=== PATIENT | female | born 1975 | race Caucasian/White ===

== ENCOUNTER 2023-07-11 16:34 | Emergency (ER) | payer OTHER ==
[2023-07-11 16:47] VITALS: BP 122/63; PULSE 66; RESP 18; TEMP 97.7; BMI 29.0
[2023-07-11 17:33] LABS: HCG,QUALITATIVE URINE Negative
[2023-07-11 18:07] LABS: EPI CELLS >36 /uL (0-25.1); HYALINE CASTS 1 /uL (0-3.1); PH,URINE 5.5 (5.0-8.0); URINE APPEARANCE CLEAR; URINE BACTERIA 626 /uL (0-1359); URINE BILIRUBIN NEGATIVE (NEGATIVE); URINE COLOR YELLOW; URINE GLUCOSE (UA) NEGATIVE (NEGATIVE); URINE KETONE 1+ (NEGATIVE); URINE LEUK ESTERASE NEGATIVE (NEGATIVE); URINE NITRITE NEGATIVE (NEGATIVE); URINE PROTEIN NEGATIVE (NEGATIVE); URINE RBC 8 /uL (0-23.9); URINE UROBILINOGEN 0.2 mg/dL (0.2-1.0); URINE WBC 33 /uL (0-25.8)
[2023-07-11] MEDS ORDERED: IBUPROFEN 600 MG TABLET (FP) PO ONE (18:41)
[2023-07-11] MEDS ORDERED: ACETAMINOPHEN 500 MG TABLET (FP) ONE (18:41)
[2023-07-11] MEDS ORDERED: PHENAZOPYRIDINE HCL 100 MG TABLET (FP) ONE (18:41)
[2023-07-11] MEDS: PHENAZOPYRIDINE HCL 100 MG TABLET (FP) PO ONE (18:45)
[2023-07-11] MEDS: IBUPROFEN 600 MG TABLET (FP) PO ONE (18:45)
[2023-07-11] MEDS: ACETAMINOPHEN 500 MG TABLET (FP) PO ONE (18:45)
[2023-07-11 19:03] LABS: BASO % 0.5 % (0-2.0); EOS % 2.5 % (0-4.5); HEMATOCRIT 35.3 % (32.4-45.2); HEMOGLOBIN 11.9 GM/dL (10.7-15.3); LYMPH % 36.5 % (8-40); MCH 29.3 pg (25.7-33.7); MCHC 33.6 g/dl (32.0-36.0); MEAN CELL VOLUME 87.2 fl (80-96); MEAN PLT VOLUME 7.7 fl (7.5-11.1); MONO % 4.9 % (3.8-10.2); NEUT % 55.6 % (42.8-82.8); PLATELET COUNT 378 10^3/uL (134-434); RBC 4.05 M/mm3 (3.60-5.2); RDW 14.3 % (11.6-15.6); WHITE BLOOD COUNT 9.1 K/mm3 (4.0-10.0)
[2023-07-11 19:14] LABS: YEAST NONE SEEN (NEGATIVE)
[2023-07-11 19:19] LABS: POTASSIUM 4.2 mmol/L (3.5-5.1)
[2023-07-11 19:21] LABS: CALCIUM 8.9 mg/dL (8.5-10.1)
[2023-07-11 19:22] LABS: ALBUMIN 3.6 g/dl (3.4-5.0)
[2023-07-11 19:25] LABS: CREATININE 0.8 mg/dL (0.55-1.3)
[2023-07-11 19:26] LABS: BILIRUBIN,TOTAL 0.2 mg/dL (0.2-1); TOT PROT 7.4 g/dl (6.4-8.2)
[2023-07-11] MEDS ORDERED: CEPHALEXIN MONOHYDRATE 500 MG CAPSULE (UD) ONE (21:22)
[2023-07-11] MEDS: CEPHALEXIN MONOHYDRATE 500 MG CAPSULE (UD) PO ONE (21:23)
== END 2023-07-11 22:16 | disposition home or self-care (01) ==
LOC: JERFT 16:34 → JER 16:34 → JERFT 22:16
DX: R10.30 Lower abdominal pain, unspecified (principal); D25.9 Leiomyoma of uterus, unspecified; N30.01 Acute cystitis with hematuria; R10.2 Pelvic and perineal pain; M54.50 Low back pain, unspecified
CPT/HCPCS: 36415; 76830-TC; 80053; 81003; 82550; 84703; 85025; 87086; 99284-25

== ENCOUNTER 2024-05-13 14:25 | Emergency (ER) | payer OTHER ==
[2024-05-13 14:38] VITALS: RESP 18; TEMP 98.3; BMI 32.5
[2024-05-13 15:55] LABS: EOS % 3.6 % (0-4.5); HEMATOCRIT 38.4 % (32.4-45.2); HEMOGLOBIN 12.6 GM/dL (10.7-15.3); LYMPH % 34.6 % (8-40); MCHC 32.9 g/dl (32.0-36.0); MEAN CELL VOLUME 88.1 fl (80-96); MEAN PLT VOLUME 7.2 fl (7.5-11.1); NEUT % 56.8 % (42.8-82.8); PLATELET COUNT 304 10^3/uL (134-434); RBC 4.36 M/mm3 (3.60-5.2); RDW 14.1 % (11.6-15.6); WHITE BLOOD COUNT 7.3 K/mm3 (4.0-10.0)
[2024-05-13 16:10] LABS: INR 1.01 (0.83-1.09); PROTHROMBIN TIME (PATIENT) 11.6 SEC (9.7-13.0)
[2024-05-13 16:30] LABS: POTASSIUM 3.9 mmol/L (3.5-5.1)
[2024-05-13 16:32] LABS: CALCIUM 8.9 mg/dL (8.5-10.1)
[2024-05-13 16:33] LABS: ALBUMIN 3.8 g/dl (3.4-5.0); BLOOD UREA NITROGEN 16.6 mg/dL (7-18)
[2024-05-13 16:36] LABS: CREATININE 0.8 mg/dL (0.55-1.3)
[2024-05-13 16:38] LABS: BILIRUBIN,TOTAL 0.3 mg/dL (0.2-1); TOT PROT 7.4 g/dl (6.4-8.2)
[2024-05-13 18:20] VITALS: BP 136/75; PULSE 68
== END 2024-05-13 20:00 | disposition home or self-care (01) ==
LOC: JERFT 14:25 → JER 14:25 → JERFT 20:00
DX: R22.0 Localized swelling, mass and lump, head (principal); R20.2 Paresthesia of skin; M54.2 Cervicalgia
CPT/HCPCS: 36415; 70450-TC; 70498-TC; 72125-TC; 80053; 85025; 85610; 99284-25; Q9967

== ENCOUNTER 2024-11-21 07:16 | Day surgery (SDC) | payer OTHER ==
[2024-11-19 12:56] VITALS: BMI 32.5
[2024-11-21] MEDS ORDERED: LIDOCAINE HCL/PF 2% SDV 5ML VIAL ONE (09:19)
[2024-11-21] MEDS ORDERED: MIDAZOLAM HCL 2 MG/2 ML SINGLE DOSE VIAL ONE (09:20)
[2024-11-21] MEDS ORDERED: PROPOFOL 20 ML ONE (09:22)
[2024-11-21] MEDS ORDERED: BUPIVACAINE HCL/PF 2.5 MG/ML - 30 ML VIAL IJ ONE (09:31)
[2024-11-21] MEDS ORDERED: ONDANSETRON 4 MG/2 ML VIAL ONE ×2 (09:58→12:36)
[2024-11-21] MEDS ORDERED: KETOROLAC TROMETHAMINE 30 MG/1 ML VIAL ONE (09:58)
[2024-11-21] MEDS ORDERED: DEXAMETHASONE SOD PHOSPHATE 4 MG/1 ML VIAL ONE (09:58)
[2024-11-21] MEDS ORDERED: ROCURONIUM BROMIDE 50 MG/5 ML SYRINGE ONE (10:35)
[2024-11-21] MEDS: BUPIVACAINE HCL/PF 0.25% (2.5MG/ML) 10 ML VIAL IJ ONE ×2 (11:15→11:38)
[2024-11-21] MEDS ORDERED: PROMETHAZINE HCL 25 MG/1 ML VIAL IVPB PRN (11:59)
[2024-11-21] MEDS ORDERED: LACTATED RINGERS SOLUTION 1,000 ML IV SCH (12:00)
[2024-11-21] MEDS ORDERED: ACETAMINOPHEN INJECTION 100 ML ONE (12:17)
[2024-11-21] MEDS: ACETAMINOPHEN 1000 MG/100 ML BAG IVPB ONE (12:21)
[2024-11-21] MEDS: ONDANSETRON 4 MG/2 ML VIAL IVPUSH PRN (12:35)
[2024-11-21 14:03] VITALS: TEMP 97.4
[2024-11-21 14:08] VITALS: BP 124/70; PULSE 72; RESP 19
== END 2024-11-21 14:00 | disposition home or self-care (01) ==
LOC: FASU 07:16
PROVIDERS: ATTEND Plastic Surgery
PROC: 0HPU0JZ Removal of Synthetic Substitute from Left Breast, Open Approach (ICD-10-PCS; principal; 2024-11-21 10:10)
PROC: 0HPT0JZ Removal of Synthetic Substitute from Right Breast, Open Approach (ICD-10-PCS; 2024-11-21 10:10)
DX: T85.44XA Capsular contracture of breast implant, initial encounter (principal); Y83.2 Surgical operation with anastomosis, bypass or graft as the cause of abnormal reaction of the patient, or of later complication, without mention of misadventure at the time of the procedure; Y92.89 Other specified places as the place of occurrence of the external cause
CPT/HCPCS: 81025; 88300-TC; 88304-TC; 94760